=== PATIENT | male | born 2000 | race Caucasian/White ===

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

== ENCOUNTER 2018-02-25 20:41 | Emergency (ER) | payer OTHER ==
[~2018-02-25] VITALS: Ht 182.9 cm; Wt 80.4 kg
[~2018-02-25 20:41] MED LIST changes: -IBUP-103 PO; +MULT-506 PO; +PROB1TAB16 PO
[2018-02-25 20:45] VITALS: TEMP 36.8; Ht 182.9 cm; Wt 80.4 kg
[2018-02-25] MEDS ORDERED: XYLOCAINE 1%/SOD BICARB 20 ML VIAL INFIL ONE (21:15)
[2018-02-25] MEDS ORDERED: IBUPROFEN 600 MG TAB PO STA (22:12)
[2018-02-25 22:18] VITALS: BP 117/62; PULSE 74; O2SAT 95
--- NOTE | 2018-02-26 02:02 | EMERGENCY ROOM VISIT NOTE ---
ED Visit Note First contact with patient: 20:49 Chief Complaint: I cut the left side of my eyebrow. History of Present Illness: Mr. Quigley is a 17-year-old white male who ambulates into the ED complaining of a laceration to the medial aspect of the left eyebrow. Patient reports approximately 1 hour ago he was playing bubble soccer and struck the left side of his face on a piece of plastic and sustained a laceration. He reports he control bleeding prior to arrival at the hospital but did not wash the wound. Currently he places discomfort over the medial aspect of the eyebrow. He describes his pain as an achy and stinging sensation. He rates his discomfort 2 /10. His pain is nonradiating. His pain worsens slightly with palpation. He has not identified any alleviating factors related to the pain. He has not taken medications for pain prior to arrival at the hospital. He denies any associated symptoms including loss of consciousness at the time of the injury, signs of head injury since the injury, visual changes, other facial pain. Review of Systems: As noted above in history of present illness. Past Medical History: Status post appendectomy. Current Medications: Probiotics, multivitamins. Allergies to Medications: Patient denies. Social History: Patient is currently university student; he feels safe in his home environment; he denies tobacco use but admits to alcohol use. Tetanus Immunization Status: Patient reports up-to-date. Physical Examination: Vital Signs: Date Time Temp Pulse Resp B/P (MAP) Pulse Ox O2 Delivery O2 Flow Rate FiO2 02/25/18 22:18 74 18 117/62 95 02/25/18 20:45 36.8 92 18 113/53 94 Room Air GENERAL: 17-year-old male in no acute distress, nontoxic-appearing, afebrile and hemodynamically stable. NEUROLOGICAL: Awake, alert and oriented to person, place and time. Answering questions appropriately and following commands. Normal gait. Good hand eye coordination. SKIN: Warm, dry and pink. Face: Over the medial aspect of the left eyebrow patient has a small flap laceration measuring approximately 1 cm. No active bleeding. HEENT: Soft tissue injury as noted above. Atraumatic and normocephalic. Face: No tenderness, bony deformity, bony crepitus or ecchymosis surrounding the orbit of the left eye and the left side of the face. PERRLA. EOMI. Sclera white and conjunctiva pink. ED Course: Patient is assessed as noted above. Patient is assessed as noted above. Patient was initially offered pain medication and refused. Wound Repair: Complexity: Basic Verbal consent was obtained after the risks and benefits were explained. The skin was prepped with betadine and a sterile field set. Wound edges of the wound was anesthetized with 1.2 ml buffered 1% lidocaine. The wound was explored for foreign bodies and none found. Copious irrigation was performed using sterile saline. With direct pressure the bleeding subsided. Debridement was not performed. The wound edges were approximated using 6-0 Ethilon with 3 simple interrupted sutures. Hemostasis and excellent approximation was achieved. Antibacterial ointment and a sterile dressing applied. No complications and the patient tolerated the procedure well. Just prior to discharge patient reports she had increasing pain in the area and requested ibuprofen and he was given 600 mg by mouth. Patient was educated about tonight's findings and instructed on his treatment plan; he verbalizes understanding and agreement with this plan. Clinical Impression: Laceration of the left eyebrow. Disposition: Patient discharged home in stable condition. Plan: Comfort measures, wound care, and signs of infection were discussed with the patient. Patient was educated on signs of head injury. Patient was encouraged to follow-up with PCP or return to the ED for any signs of infection and/or suture removal in 5-6 days. Patient was encouraged return the ED for any signs of head injury or any new/ concerning symptoms.
== END 2018-02-25 22:19 | disposition home or self-care (01) ==
LOC: C.EDB 20:42 → C.EDD 22:19
DX: S01.112A Laceration without foreign body of left eyelid and periocular area, initial encounter (principal); W26.8XXA Contact with other sharp object(s), not elsewhere classified, initial encounter; Y93.67 Activity, basketball

== ENCOUNTER 2018-03-03 18:01 | Emergency (ER) | payer BC, OTHER ==
[~2018-03-03] VITALS: Ht 188 cm; Wt 78.1 kg
[2018-03-03 18:04] VITALS: PULSE 99; TEMP 36.9; O2SAT 99; Ht 188 cm; Wt 78.1 kg
--- NOTE | 2018-03-03 18:24 | EMERGENCY ROOM VISIT NOTE ---
ED Visit Note First contact with patient: 18:07 CHIEF COMPLAINT: Removal of sutures HISTORY OF PRESENT ILLNESS: This 17-year-old male patient presents to the emergency department for removal of sutures from their left eyebrow. The sutures were placed 6 days ago. There have been no signs of infection. The patient denies any pain. REVIEW OF SYSTEMS: A review of systems was performed with positives and pertinent negatives listed in the history of present illness. All other systems were reviewed and are negative. ALLERGIES: No known allergies MEDICATIONS: Unchanged from previous visit. PMH: Unchanged from previous visit. SOCIAL HISTORY: Patient is a [employer] student. PHYSICAL EXAM: VITALS: Vitals are noted on the nurse's note and reviewed by myself. Vital signs stable. GENERAL: This is a 17-year-old male, in no acute distress, nondiaphoretic, well- developed well-nourished. SKIN: There is a well-healing sutured wound on the left eyebrow with no signs of infection. EMERGENCY DEPARTMENT COURSE: The patient was evaluated as above. Sutures were removed from the brow with no dehiscence. There is no evidence of infection. Scar reduction measures were discussed the the patient. They verbalized understanding and were discharged home in good condition. DIAGNOSIS: Encounter for suture removal DISCHARGE INSTRUCTIONS & TREATMENT: Wash the remaining crusts off the wound. Keep the wound covered with SPF for the next 6 months to reduce scarring. Once the wound has fully healed, you may apply Vitamin E oil, cocoa butter, or any over the counter scar reducing formulations daily. Problem List Surgical Problems: (1) Hx of appendectomy Status: Resolved Current/Historical Medications Scheduled Multivitamin (Multivitamin), 1 TAB PO DAILY Probiotic Product (Probiotic), 1 TAB PO DAILY Allergies Coded Allergies: No Known Allergies (Unverified , 07/15/16) Vital Signs Date Time Temp Pulse Resp B/P (MAP) Pulse Ox O2 Delivery O2 Flow Rate FiO2 03/03/18 18:04 36.9 99 20 99 Room Air Departure Information Impression Primary Impression: Encounter for removal of sutures Dispostion Home / Self-Care Condition GOOD Referrals No Doctor, Assigned (PCP) Patient Instructions My [facility] Additional Instructions Wash the remaining crusts off the wound. Keep the wound covered with SPF for the next 6 months to reduce scarring. Once the wound has fully healed, you may apply Vitamin E oil, cocoa butter, or any over the counter scar reducing formulations daily.
[2018-03-03] MEDS ORDERED: AMPH1TAB PO (18:28)
== END 2018-03-03 18:30 | disposition home or self-care (01) ==
LOC: C.EDB 18:02 → C.EDD 18:30
DX: S01.112D Laceration without foreign body of left eyelid and periocular area, subsequent encounter (principal); X58.XXXD Exposure to other specified factors, subsequent encounter

== ENCOUNTER 2018-06-30 16:09 | Emergency (ER) | payer BC ==
[~2018-06-30] VITALS: Ht 188 cm; Wt 65.3 kg
[~2018-06-30 16:09] MED LIST changes: +AMPH1TAB PO; -PROB1TAB16 PO
[2018-06-30 16:19] VITALS: Ht 188 cm; Wt 65.3 kg
--- NOTE | 2018-06-30 16:40 | EMERGENCY ROOM VISIT NOTE ---
ED Visit Note First contact with patient: 16:34 CHIEF COMPLAINT: Insect bite HISTORY OF PRESENT ILLNESS: This is a 18-year-old male who presents to the emergency department with concern for a bug bite on his right thigh. He states that he first noticed a bug bite on Saturday night, and noticed a ring of red around the insect bite that reminded him of a bull's-eye rash. 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 He denies any fevers, chills, neck pain, headaches, body aches, joint pain, or other unusual rash. He denies any known tick exposure. REVIEW OF SYSTEMS: A complete 6 point review of systems was reviewed with the patient with pertinent positives and negatives as per history of present illness. All else were negative. PMH: The patient is healthy; there is no significant medical or surgical history. SOCIAL HISTORY: Patient lives at home. He is a [employer] student. Non-smoker , occasional alcohol use. PHYSICAL EXAM: Vital Signs: Reviewed Nurse's notes. There is a small pink papule noted on the right lateral thigh consistent with an insect bite. There is no zone of inflammation or ecchymosis around the area of the insect bite. The skin is otherwise clear. NEUROLOGICAL: Alert and cooperative. Sensory and motor functions grossly intact. ED COURSE: I examined the patient. He is afebrile. He denies any symptoms of acute Lyme disease. There is a small insect bite noted on his right thigh, it does not appear to be infected and there is no targetoid lesion. I explained to the patient that doing blood tests for Lyme disease would not be effective since he has already tested positive for Lyme in the past. He does not have any symptoms or clinical findings suggestive of an acute Lyme infection at this time. I encouraged him to monitor the insect bite for any signs of infection and to follow-up with his PCP for any further concerns. Patient was discharged home in stable condition and ambulatory. Problem List Surgical Problems: (1) Hx of appendectomy Status: Resolved Current/Historical Medications Scheduled Multivitamin (Multivitamin), 1 TAB PO DAILY Scheduled PRN Amphetamine-Dextroamphetamine (Adderall), 15 MG PO DAILY PRN for Focus Allergies Coded Allergies: No Known Allergies (Unverified , 9/4/16) Vital Signs Date Time Temp Pulse Resp B/P (MAP) Pulse Ox O2 Delivery O2 Flow Rate FiO2 06/30/18 17:01 36.8 74 16 99/64 96 06/30/18 16:19 36.8 74 16 99/64 96 Room Air Departure Information Impression Primary Impression: Insect bite of thigh, right Dispostion Home / Self-Care Condition GOOD Referrals No Doctor, Assigned (PCP) Patient Instructions ED Bite Insect, My [facility] Additional Instructions You have been evaluated in the emergency department today for your insect bite. Watch the area for signs of infection. Keep antibiotic ointment on it for 2 days. Follow-up with your primary care provider or S as needed. Problem Qualifiers Primary Impression: Insect bite of thigh, right Encounter type: initial encounter Qualified Codes: S70.361A - Insect bite ( nonvenomous), right thigh, initial encounter; W57.XXXA - Bitten or stung by nonvenomous insect and other nonvenomous arthropods, initial encounter
[2018-06-30 17:01] VITALS: BP 99/64; PULSE 74; TEMP 36.8; O2SAT 96
== END 2018-06-30 17:01 | disposition home or self-care (01) ==
LOC: C.EDB 16:10 → C.EDD 17:01
DX: S70.361A Insect bite (nonvenomous), right thigh, initial encounter (principal); W57.XXXA Bitten or stung by nonvenomous insect and other nonvenomous arthropods, initial encounter